=== PATIENT | female | born 1985 | race Caucasian/White ===

== ENCOUNTER 2018-12-22 22:23 | Inpatient (IN) | payer MEDICAID, OTHER ==
[2018-12-22 23:35] LABS: Amphetamine Screen,Urine Not Detected (NotDetected); Barbiturate Screen,Urine Not Detected (NotDetected); Benzodiazepines Screen,Urine Detected (NotDetected); Cocaine Screen,Urine Not Detected (NotDetected); Methadone Screen, Urine Not Detected (NotDetected); Opiate Screen,Urine Not Detected (NotDetected); Oxycodone Screen, Urine Detected (NotDetected); Phencyclidine Screen,Urine Not Detected (NotDetected); Tricyclic Antidepressant,Urine Detected (NotDetected); Urn Cannabinoid Scrn Detected (NotDetected)
--- NOTE | 2018-12-22 23:41 | ED ---
General Adult HPI - General Source: patient, police, RN notes reviewed, old records reviewed Mode of arrival: ambulatory Limitations: no limitations <Russell Cardoso - Last Filed: 12/22/18 23:39> <Gael Freeman - Last Filed: 12/23/18 12:08> - General Chief complaint: Psychiatric Symptoms Stated complaint: Suicidal Time Seen by Provider: 12/22/18 22:39 - History of Present Illness Initial comments: 36-year-old female presents with alcohol intoxication and suicidal ideation. She has been sober for approximately one year. She admits to drinking alcohol this evening. She has made suicidal comments and has made some superficial cuts to her wrist. She denies any other ingestion. She has had previous psychiatric history including depression and admission to psychiatric facilities with suicide thoughts. No other physical complaints. (Russell Cardoso) - Related Data Home Medications Medication Instructions Recorded Confirmed Diazepam [Valium] 5 mg PO Q8H PRN 12/22/18 12/22/18 Mirtazapine [Remeron] 30 mg PO HS 12/22/18 12/22/18 Pregabalin [Lyrica] 150 mg PO BID 12/22/18 12/22/18 Allergies Allergy/AdvReac Type Severity Reaction Status Date / Time No Known Allergies Allergy Verified 12/22/18 23:30 Review of Systems ROS Other: All systems not noted in ROS Statement are negative. <Russell Cardoso - Last Filed: 12/22/18 23:39> ROS Other: All systems not noted in ROS Statement are negative. <Gael Freeman - Last Filed: 12/23/18 12:08> ROS Statement: Those systems with pertinent positive or pertinent negative responses have been documented in the HPI. Past Medical History Past Medical History: No Reported History Additional Past Medical History / Comment(s): depression History of Any Multi-Drug Resistant Organisms: None Reported Additional Past Surgical History / Comment(s): chronic knee pain Past Psychological History: Anxiety, Depression Smoking Status: Current every day smoker Past Alcohol Use History: Occasional Past Drug Use History: Marijuana <Russell Cardoso - Last Filed: 12/22/18 23:39> General Exam Limitations: no limitations General appearance: alert, in no apparent distress, appears intoxicated Head exam: Present: atraumatic, normocephalic Eye exam: Present: normal appearance, PERRL ENT exam: Present: normal exam Neck exam: Present: normal inspection. Absent: tenderness, meningismus Respiratory exam: Present: normal lung sounds bilaterally. Absent: respiratory distress, wheezes Cardiovascular Exam: Present: regular rate, normal rhythm GI/Abdominal exam: Present: soft. Absent: distended, tenderness, guarding Neurological exam: Present: alert, oriented X3, CN II-XII intact. Absent: motor sensory deficit Psychiatric exam: Present: depressed, suicidal ideation Skin exam: Present: warm, dry, abrasion (Superficial abrasion left wrist, no repairable laceration.) <Russell Cardoso - Last Filed: 12/22/18 23:39> Course <Russell Cardoso - Last Filed: 12/22/18 23:39> Vital Signs 12/22/18 12/23/18 22:28 08:14 Temperature 97.5 F L 98 F Pulse Rate 81 85 Respiratory 16 16 Rate Blood Pressure 111/84 105/69 O2 Sat by Pulse 97 97 Oximetry - Reevaluation(s) Reevaluation #1: 12/22/18 0100 Patient's care is signed out at shift change to Dr. De Jesus awaiting sobriety and EPS evaluation. (Russell Cardoso) Medical Decision Making - Lab Data Result diagrams: 12/23/18 09:28 12/23/18 09:28 <Gael Freeman - Last Filed: 12/23/18 12:08> - Medical Decision Making I went in and interviewed the patient at 8:15 and then filled out a clinical certification for the patient to be admitted. (Gael Freeman) - Lab Data Lab Results 12/22/18 12/23/18 12/23/18 Range/Units 23:10 00:01 09:07 WBC (3.8-10.6) k/uL RBC (3.80-5.40) m/uL Hgb (11.4-16.0) gm/dL Hct (34.0-46.0) % MCV (80.0-100.0) fL MCH (25.0-35.0) pg MCHC (31.0-37.0) g/dL RDW (11.5-15.5) % Plt Count (150-450) k/uL Neutrophils % % Lymphocytes % % Monocytes % % Eosinophils % % Basophils % % Neutrophils # (1.3-7.7) k/uL Lymphocytes # (1.0-4.8) k/uL Monocytes # (0-1.0) k/uL Eosinophils # (0-0.7) k/uL Basophils # (0-0.2) k/uL Sodium (137-145) mmol/L Potassium (3.5-5.1) mmol/L Chloride (98-107) mmol/L Carbon Dioxide (22-30) mmol/L Anion Gap mmol/L BUN (7-17) mg/dL Creatinine (0.52-1.04) mg/dL Est GFR (CKD-EPI)AfAm (>60 ml/min/1.73 sqM) Est GFR (CKD-EPI)NonAf (>60 ml/min/1.73 sqM) Glucose (74-99) mg/dL Calcium (8.4-10.2) mg/dL Total Bilirubin (0.2-1.3) mg/dL AST (14-36) U/L ALT (9-52) U/L Alkaline Phosphatase (38-126) U/L Total Protein (6.3-8.2) g/dL Albumin (3.5-5.0) g/dL Urine Color Light Yellow Urine Appearance Cloudy H (Clear) Urine pH 6.0 (5.0-8.0) Ur Specific [place] 1.008 (1.001-1.035) Urine Protein Negative (Negative) Urine Glucose (UA) Negative (Negative) Urine Ketones Negative (Negative) Urine Blood Negative (Negative) Urine Nitrite Negative (Negative) Urine Bilirubin Negative (Negative) Urine Urobilinogen <2.0 (<2.0) mg/dL Ur Leukocyte Esterase Negative (Negative) Urine RBC 5 (0-5) /hpf Urine WBC 2 (0-5) /hpf Ur Squamous Epith Cells 8 H (0-4) /hpf Amorphous Sediment Occasional H (None) /hpf Urine Bacteria Rare H (None) /hpf Urine Mucus Occasional H (None) /hpf Urine HCG, Qual Not Detected (Not Detectd) Urine Opiates Screen Not Detected (NotDetected) Ur Oxycodone Screen Detected H (NotDetected) Urine Methadone Screen Not Detected (NotDetected) Ur Propoxyphene Screen Not Detected (NotDetected) Ur Barbiturates Screen Not Detected (NotDetected) U Tricyclic Antidepress Detected H (NotDetected) Ur Phencyclidine Scrn Not Detected (NotDetected) Ur Amphetamines Screen Not Detected (NotDetected) U Methamphetamines Scrn Not Detected (NotDetected) U Benzodiazepines Scrn Detected H (NotDetected) Urine Cocaine Screen Not Detected (NotDetected) U Marijuana (THC) Screen Detected H (NotDetected) 12/23/18 12/23/18 Range/Units 09:28 09:28 WBC 5.9 (3.8-10.6) k/uL RBC 4.52 (3.80-5.40) m/uL Hgb 13.8 (11.4-16.0) gm/dL Hct 40.7 (34.0-46.0) % MCV 90.1 (80.0-100.0) fL MCH 30.5 (25.0-35.0) pg MCHC 33.9 (31.0-37.0) g/dL RDW 13.5 (11.5-15.5) % Plt Count 288 (150-450) k/uL Neutrophils % 56 % Lymphocytes % 33 % Monocytes % 7 % Eosinophils % 2 % Basophils % 1 % Neutrophils # 3.3 (1.3-7.7) k/uL Lymphocytes # 2.0 (1.0-4.8) k/uL Monocytes # 0.4 (0-1.0) k/uL Eosinophils # 0.1 (0-0.7) k/uL Basophils # 0.0 (0-0.2) k/uL Sodium 144 (137-145) mmol/L Potassium 3.8 (3.5-5.1) mmol/L Chloride 111 H (98-107) mmol/L Carbon Dioxide 21 L (22-30) mmol/L Anion Gap 12 mmol/L BUN 13 (7-17) mg/dL Creatinine 0.56 (0.52-1.04) mg/dL Est GFR (CKD-EPI)AfAm >90 (>60 ml/min/1.73 sqM) Est GFR (CKD-EPI)NonAf >90 (>60 ml/min/1.73 sqM) Glucose 106 H (74-99) mg/dL Calcium 8.5 (8.4-10.2) mg/dL Total Bilirubin 0.3 (0.2-1.3) mg/dL AST 15 (14-36) U/L ALT 12 (9-52) U/L Alkaline Phosphatase 61 (38-126) U/L Total Protein 6.8 (6.3-8.2) g/dL Albumin 4.0 (3.5-5.0) g/dL Urine Color Urine Appearance (Clear) Urine pH (5.0-8.0) Ur Specific [place] (1.001-1.035) Urine Protein (Negative) Urine Glucose (UA) (Negative) Urine Ketones (Negative) Urine Blood (Negative) Urine Nitrite (Negative) Urine Bilirubin (Negative) Urine Urobilinogen (<2.0) mg/dL Ur Leukocyte Esterase (Negative) Urine RBC (0-5) /hpf Urine WBC (0-5) /hpf Ur Squamous Epith Cells (0-4) /hpf Amorphous Sediment (None) /hpf Urine Bacteria (None) /hpf Urine Mucus (None) /hpf Urine HCG, Qual (Not Detectd) Urine Opiates Screen (NotDetected) Ur Oxycodone Screen (NotDetected) Urine Methadone Screen (NotDetected) Ur Propoxyphene Screen (NotDetected) Ur Barbiturates Screen (NotDetected) U Tricyclic Antidepress (NotDetected) Ur Phencyclidine Scrn (NotDetected) Ur Amphetamines Screen (NotDetected) U Methamphetamines Scrn (NotDetected) U Benzodiazepines Scrn (NotDetected) Urine Cocaine Screen (NotDetected) U Marijuana (THC) Screen (NotDetected) Disposition <Russell Cardoso - Last Filed: 12/22/18 23:39> Time of Disposition: 08:32 <Gael Freeman - Last Filed: 12/23/18 12:08> Clinical Impression: Depression, Suicidal ideation, Alcohol abuse Disposition: ADMITTED IP TO THIS HOSP
[2018-12-23] MEDS ORDERED: ONDANSETRON ODT 4 MG TAB PO STA (01:41)
[2018-12-23] MEDS ORDERED: LORazepam 1 MG TAB PO STA (02:21)
[2018-12-23 09:30] LABS: Amorphous Sediment,Urine Occasional /hpf; Appearance,Urine Cloudy (Clear); Bacteria,Urine Rare /hpf; Bilirubin,Urine Negative (Negative); Blood,Urine Negative (Negative); Color,Urine Light Yellow; Glucose,Urine (UA) Negative (Negative); Ketones,Urine Negative (Negative); Leukocyte Esterase,Urine Negative (Negative); Mucus,Urine Occasional /hpf; Nitrite,Urine Negative (Negative); Protein,Urine Negative (Negative); RBC,Urine 5 /hpf (0-5); Specific Gravity,Urine 1.008 (1.001-1.035); Squamous Epithelial Cell,Urine 8 /hpf (0-4); Urobilinogen,Urine <2.0 mg/dL (<2.0); WBC,Urine 2 /hpf (0-5)
[2018-12-23 09:47] LABS: ALT 12 U/L (9-52); AST 15 U/L (14-36); African American GFR (CKD) >90 (>60 ml/min/1.73 sqM); Alkaline Phosphatase 61 U/L (38-126); Anion Gap 12 mmol/L; Blood Urea Nitrogen 13 mg/dL (7-17); Calcium 8.5 mg/dL (8.4-10.2); Carbon Dioxide 21 mmol/L (22-30); Chloride 111 mmol/L (98-107); Glucose 106 mg/dL (74-99); Potassium 3.8 mmol/L (3.5-5.1); Sodium 144 mmol/L (137-145); Total Bilirubin 0.3 mg/dL (0.2-1.3); Total Protein 6.8 g/dL (6.3-8.2)
[2018-12-23 09:59] LABS: Basophils % (A) 1 %; Eosinophils # (A) 0.1 k/uL (0-0.7); Eosinophils % (A) 2 %; HCT 40.7 % (34.0-46.0); HGB 13.8 gm/dL (11.4-16.0); Lymphocytes % (A) 33 %; MCH 30.5 pg (25.0-35.0); MCHC 33.9 g/dL (31.0-37.0); MCV 90.1 fL (80.0-100.0); Mean Platelet Volume 7.4; Monocytes # (A) 0.4 k/uL (0-1.0); Monocytes % (A) 7 %; Neutrophils # (A) 3.3 k/uL (1.3-7.7); Neutrophils % (A) 56 %; Platelet Count 288 k/uL (150-450); RBC 4.52 m/uL (3.80-5.40); RDW 13.5 % (11.5-15.5); WBC 5.9 k/uL (3.8-10.6)
[2018-12-23] MEDS ORDERED: MAG HYDROX/AL HYDROX/SIMETH 30 ML CUP PO PRN (12:10)
[2018-12-23] MEDS ORDERED: ZIPRASIDONE 20 MG VIAL IM PRN (12:10)
[2018-12-23] MEDS ORDERED: MAGNESIUM HYDROXIDE 2,400 MG/10 ML CUP PO PRN (12:10)
[2018-12-23] MEDS ORDERED: ACETAMINOPHEN TAB 325 MG TAB PO PRN (12:10)
[2018-12-23 14:23] VITALS: BMI 31.4
[2018-12-23] MEDS ORDERED: NICOTINE 21MG/24HR PATCH TRANSDERM STA (15:17)
[2018-12-23] MEDS: hydrOXYzine PAMOATE 25 MG CAP PO PRN (15:20)
[2018-12-23] MEDS: OLANZapine 5 MG TAB PO SCH ×2 (15:20→20:32)
--- NOTE | 2018-12-23 15:53 | HP ---
HISTORY AND PHYSICAL IDENTIFYING DATA: The patient is a 33-year-old female. She lives in her own home with her son with whom she has partial custody. She was admitted on petition for involuntary hospitalization. CHIEF COMPLAINT: The patient was depressed. She made suicide statements. She was intoxicated. HISTORY OF PRESENTING ILLNESS: The patient has had long-term problems with depression. She had 1 prior psychiatric hospitalization about one year ago in [place]. She was there for a week. She was discharged on medications. She does not recall what medicines she was on at that time. At that time, the patient indicated that she had swallowed a "bunch of pills" and then became distressed over the event and told her father she had just overdosed. He ended up getting her to the hospital. Currently, she is taking Remeron 30 mg a day, Valium 5 mg 3 times a day and Lyrica 150 mg twice a day. She came to the emergency room after having drank about a pint of alcohol yesterday. She said she was quite intoxicated as part of what got her to be suicidal. She apparently had locked herself in the bathroom and was contemplating cutting her wrists with a razor blade. Her mother and sister forced the door open, called police and she was brought to the ED. It is noted that the patient said she had not been drinking alcohol for the last 9 months. She had been drinking on a daily basis, 1-2 pints a day prior to that. She said that she just got to a point where she would vomit when she drank, so she just stopped on her own. She notes that some years ago she was in treatment facilities including 1 stay for 30 days and another stay for 45 days. According to family with whom I talked, she did quite a bit better overall in her life after she left those facilities. I talked to mother and sister. They indicated that for quite some time, the patient has been gradually declining in her overall function. She lives in a home that her father owns though he does not live there. She has been barely taking care of the home and it is in quite a disheveled state. According to the family, she will not wash clothes. She does not take care of refuge. She has very poor motivation in all areas of her life. The patient notes that she has an 8-year-old son who lives half time between her and the son's father. She said when the son is at father's house, she essentially withdraws. She barely can do anything. She stays in her house. She notes that her only activity outside of her house is when she has her son and needing to attend to his needs. She reports no problems with hallucinations or delusions. She does not identify any clear trauma issues or any posttraumatic symptoms. She has significant anxiety and frequently gets panic attacks for no reason. She has loss of energy, motivation and interest. She has hopeless and helpless feelings. She has poor sleep and poor appetite. It is noted that the house that the patient is living in may soon be up for sale. Patient has no idea what she will do when her father sells the house. Family notes that the patient frequently comes from her home in [place] up to grandmother's house in [place] essentially as a refuge. The patient's mother lives with grandmother. She in fact was at the grandmother's house when the events happened yesterday. The patient had been in partial hospitalization through [place] at a facility nearby her home. She was vague about particulars on that, though says that she did feel it helped to some extent. It is noteworthy that currently she acknowledges very severe incapacitating depression. She is admitted for further evaluation. SUBSTANCE USE HISTORY: Patient smokes marijuana regularly. She suggests that she may smoke marijuana 2-4 times a week. She has a past history of alcohol dependence. She did relapse yesterday. She says that otherwise she has not had not drank in 9 months. She denies any significant problems with other abusive substances. PAST MEDICAL HISTORY: The patient reports no significant or chronic general health complaints. She has had one . She reports normal periods without any difficulties. 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 She graduated from high school. She grew up with both parents in the home. When she was in her 20s, her parents . She has a brother 7 years older who she has little or no contact with. She has had a sister 7 years younger who she does have regular contact with. She says that the sister does not really understand some of the struggles she has had. MENTAL STATUS EXAM: Patient was quite restless. She gave poor eye contact. She tended to fidget quite a bit as well as moving her chair. She answered questions with direct responses. Her thoughts were clear, coherent, and goal directed. Her affect was anxious and intense. Her mood depressed. She was significantly distressed. There was no indication of thought disorder. Cognition was clear. She was oriented and alert. Recent and remote memory were intact. She did make an effort to answer formal cognitive questions, but gave an accurate history based on records. Insight was fair. Judgment fair. Fund of knowledge average. ASSESSMENT: This 33-year-old female is diagnosed with major depression and marijuana dependence. She has a history of alcohol dependence. She has chronic depression that has been quite severe and apparently advancing. Precipitating factors to her current situation are not clear. It is noteworthy that when I talked to the patient in the ED initially, she was very fixed on the idea of being discharged to outpatient followup. [facility] had offered [facility]. She became very distressed in the ED when the possibility was presented to her that she may need to be hospitalized. She was very adamant about the idea that she needed to be discharged. When that was presented to her after I talked with the family that she would be hospitalized, she seemed to be somewhat accepting of the idea. Just a few hours later when I talked to her on the psychiatric unit, it is noteworthy that she was quite open in acknowledging the amount of depression, distress and poor function that she has. She seemed to show some fairly reasonable insight about her situation and need to get some help for herself. She acknowledged the struggles she has with poor self-esteem. Strengths include the patient's [place] intelligence and ability to gain some insight about her situation. Weaknesses includes chronic and persistent depression. At this point, I will continue the patient on Remeron 30 mg at bedtime. I will reduce Valium to 5 mg at bedtime for 3 days and then discontinue Valium altogether. I anticipate she will have some fairly significant withdrawal issues from the Valium. We will need to have at least a minimum taper to reduce risk for seizure. I will reduce her Lyrica down to 150 mg a day. I will start the patient on Zyprexa 5 mg 3 times a day. The aim of Zyprexa is to help augment her antidepressant. In addition, I would look for Zyprexa to help reduce physiologic stress response relating to early acute withdrawal as well as some of her anxiety and panic issues. I will need to set up a family meeting as a priority. The patient believes that her mother, sister, and father all could come in for a family meeting, which would be a critical issue in helping to further evaluate her situation and determining a good followup plan. It is noted that both mother and sister indicated on the telephone conversation I had with them that the patient has a very high likelihood of regressing when she is out of a structured environment and that it will be critical to set up some kind of a plan to look at support services for the patient. FELAL / IJN: [id number] /
[2018-12-23] MEDS: MIRTAZAPINE 15 MG TAB PO SCH (20:33)
[2018-12-23] MEDS ORDERED: PREGABALIN 75 MG CAP PO SCH (21:00)
[2018-12-23] MEDS ORDERED: DIAZEPAM 5 MG TAB PO SCH (21:00)
[2018-12-24 07:04] VITALS: RESP 16
[2018-12-24] MEDS: NICOTINE 21MG/24HR PATCH TRANSDERM SCH (08:41)
[2018-12-24] MEDS: OLANZapine 5 MG TAB PO SCH (08:42)
[2018-12-24] MEDS: PREGABALIN 75 MG CAP PO SCH (08:42)
[2018-12-24] MEDS: DIAZEPAM 5 MG TAB PO SCH ×2 (11:08→20:41)
--- NOTE | 2018-12-24 11:25 | P.PN ---
Progress Note - Text Progress Note Date: 12/24/18 Interval History: Patient is a 33-year-old female who is being seen in coverage, she was admitted for suicidal thoughts and had been using her mother's Percocet. Patient states that she thought of taking an overdose when she was visiting her grandmother because she needed help. Patient has been receiving her psychiatric medications from her primary care physician and has been taking Valium 5 mg 3 times a day consistently for a number of months as well as Lyrica 150 mg twice a day she states being given to her for anxiety and Remeron 30 mg a day at bedtime. Patient states that she is not been in treatment or seen a therapist for some time. She states that she stole Percocet from her mother. She also uses marijuana. Patient states that she hasn't seen a psychiatrist for one year and states that she is currently not feeling suicidal. Patient reported that she was feeling quite anxious this morning and jittery. Mental Status: Appearance/Attitude: Patient is appropriately dressed, makes eye contact and was cooperative Behavior: Patient does not display any psychomotor agitation or retardation Speech/Language: Patient's speech is spontaneous and normal volume and rhythm and she is coherent Thought Process: Patient is goal-directed there is no evidence of loose association or flight of ideas Thought Content: Patient denies any auditory or visual hallucinations and no delusions or paranoid ideation were elicited. Patient reports that she was visiting her grandmother and thought of taking an overdose because she needed help. Patient has been stealing Percocet from her mother, has been on Valium and Lyrica prescribed by primary care physician for anxiety. Patient is also been on Remeron for symptoms of depression. Patient states that she is also been using marijuana. Suicidal/Homicidal Ideation: Patient denies any current suicidal or homicidal ideation Sensorium/Cognition: Patient is alert and oriented to person, place, and time and her recent and remote memory are grossly intact. Mood/Affect: Patient's mood is pleasant, she is slightly anxious and her affect is appropriate Insight/Judgment: Patient's insight and judgment are fair Assessment: Patient appears to be anxious and shaky this morning, her Lyrica dose was decreased as well as her Valium dose. Patient was also placed on Zyprexa. Patient has been stealing Percocet from her mother and has been receiving her Lyrica and Valium from a primary care physician and has been filling Valium prescriptions on a monthly basis for some time. Patient has not been seen for any therapy or outpatient psychiatric care for the last year. Plan: We will discontinue the patient's Zyprexa and continue her on Remeron 30 mg at bedtime, continue with the decreased dose of Lyrica to 150 mg a day and consider discontinuing it as well. We'll increase the patient's Valium to 5 mg twice a day to continue the taper, as patient was having some withdrawal symptoms and feel that she's been on this medication for quite some time the taper needs to go slower. Patient will continue in the hospital to further sta bilize her mood.
--- NOTE | 2018-12-24 14:29 | P.HPMEDMHU ---
History of Present Illness H&P Date: 12/24/18 Chief Complaint: depression, suicide attempt Patient is a 33-year-old female with a past medical history of chronic knee pain, left knee depression, and anxiety who was brought in by petitioned for suicidal ideation and attempt. She was subsequently admitted to the mental health unit. Patient seen and examined. She reports significant depression with attempt at suicide. She denies any recent cough, cold, fever, flu, nausea, vomiting, or shortness of breath. Her appetite has been intact. She does report some insomnia. Review of Systems Pertinent positives and negatives as discussed in HPI, a complete review of systems was performed and all other systems are negative. Past Medical History Additional Past Medical History / Comment(s): depression, chronic knee pain History of Any Multi-Drug Resistant Organisms: None Reported Past Surgical History: No Surgical Hx Reported Additional Past Anesthesia/Blood Transfusion Reaction / Comment(s): no anesthesia history Smoking Status: Current every day smoker Past Alcohol Use History: Rare Past Drug Use History: Marijuana Additional History: Had been sober for 9 months until Monday when she started drinking again. - Past Family History Mother Family Medical History: No Reported History Father Family Medical History: No Reported History Medications and Allergies Home Medications Medication Instructions Recorded Confirmed Type Diazepam [Valium] 5 mg PO Q8H PRN 12/22/18 12/22/18 History Mirtazapine [Remeron] 30 mg PO HS 12/22/18 12/22/18 History Pregabalin [Lyrica] 150 mg PO BID 12/22/18 12/22/18 History Allergies Allergy/AdvReac Type Severity Reaction Status Date / Time No Known Allergies Allergy Verified 12/22/18 23:30 Physical Exam Osteopathic Statement: *. No significant issues noted on an osteopathic stru ctural exam other than those noted in the History and Physical/Consult. Vitals: Vital Signs Temp Pulse Resp BP 12/24/18 06:11 98.3 F 76 16 119/71 12/23/18 14:44 97.6 F 88 18 113/68 General: non toxic, no distress, appears at stated age, normal weight, disheveled Derm: no unusual rashes/lesions no unusual ecchymoses, warm, dry Head: atraumatic, normocephalic, symmetric Eyes: EOMI, no lid lag, anicteric sclera, pupils equal round reactive to light ENT: Nose and ears atraumatic, no thrush, no pharyngeal erythema Neck: No thyromegaly, no cervical lymphadenopathy, trachea midline, supple Mouth: no lip lesion, mucus membranes moist Cardiovascular: S1S2 reg, no murmur, positive posterior tibial pulse bilateral, no edema, capillary refill less than 2 seconds Lungs: CTA bilateral, no rhonchi, no rales , no accessory muscle use Abdominal: soft, nontender to palpation, no guarding, no appreciable organomegaly, normal bowel sounds Ext: no gross muscle atrophy, muscle strength 5 out of 5 in all 4 extremities grossly, no contractures, Neuro: CN II-XI grossly intact, light touch intact all 4 extremities, finger to nose within normal limits, Psych: Alert, oriented, appropriate affect Cranial Nerve Examination - Cranial Nerves Cranial Nerve II- Optic: Intact Cranial Nerve III- Oculomotor: Intact Cranial Nerve IV- Trochlear: Intact Cranial Nerve V- Trigeminal: Intact Cranial Nerve - Abducens: Intact Cranial Nerve VII- Facial: Intact Cranial Nerve VIII- Auditory: Intact Cranial Nerve IX- Glossopharyngeal: Intact Cranial Nerve X- Vagus: Intact Cranial Nerve XI- Accessory: Intact Cranial Nerve XII- Hypoglossal: Intact Results CBC & Chem 7: 12/23/18 09:28 12/23/18 09:28 Thrombosis Risk Factor Assmnt - DVT/VTE Prophylaxis DVT/VTE Prophylaxis: Low risk, early ambulation encouraged - Choose All That Apply Any of the Below Risk Factors Present?: Yes Each Factor Represents 1 point: Obesity (BMI >25) Other Risk Factors: No Other congenital or acquired thrombophilia - If yes, enter type in comment: No Thrombosis Risk Factor Assessment Total Risk Factor Score: 1 Thrombosis Risk Factor Assessment Level: Low Risk Assessment and Plan Assessment: Mental health history and physical Tobacco abuse -Cessation -Nicotine replacement Anxiety and depression with suicide attempt -Your psych management Thank you for allowing us to participate in the care of this patient. We will follow peripherally. Do not hesitate to contact us with questions. Someone can be reached from the [facility] hospitalist group at all hours of the day at [phone].
[2018-12-24] MEDS: hydrOXYzine PAMOATE 25 MG CAP PO PRN (15:25)
[2018-12-24 17:18] LABS: Hemoglobin A1C 5.8 % (4.0-6.0)
[2018-12-24] MEDS: MIRTAZAPINE 15 MG TAB PO SCH (20:41)
[2018-12-25 07:01] VITALS: BP 105/60; PULSE 71; TEMP 97.9
[2018-12-25] MEDS: NICOTINE 21MG/24HR PATCH TRANSDERM SCH (08:02)
[2018-12-25] MEDS: DIAZEPAM 5 MG TAB PO SCH (08:03)
[2018-12-25] MEDS: PREGABALIN 75 MG CAP PO SCH (08:03)
--- NOTE | 2018-12-25 09:58 | P.DS ---
Providers Date of admission: 12/23/18 12:02 Expected date of discharge: 12/25/18 Attending physician: Yassine Noonan Consults: 12/23/18 12:10 Consult Physician Routine Consulting Provider: Luis Domínguez Consult Reason/Comments: history and physical Do you want consulting provider notified?: Yes Primary care physician: Stated None - Discharge Diagnosis(es) (1) Major depressive disorder, recurrent severe without psychotic features Current Visit: Yes Status: Acute Priority: High (2) Opioid use disorder Current Visit: Yes Status: Acute Priority: High (3) Alcohol use disorder Current Visit: Yes Status: Acute Priority: High (4) Cannabis use disorder, mild, abuse Current Visit: Yes Status: Acute Priority: Medium Hospital Course: Brief summary of admission note: This patient is a 33-year-old female who was admitted to the mental health unit with suicidal ideation while she was intoxicated with alcohol. She had reported thoughts of cutting herself on her w rists with a razor blade. Her mother and sister forced the door open of the bathroom and the patient was brought in by police. She indicated she was sober from alcohol for 9 months and had recently relapsed and drank 1.5 pints of alcohol that day. For full details please refer to the psychiatric evaluation by Dr. Lester on 12/23/2018. Summary of hospital course: The patient was admitted to the mental health unit voluntarily. She was initially evaluated by Dr. Lester and later seen by Dr. Tilley. I have assumed care of the patient starting today. I was informed that the patient has inpatient chemical dependency treatment arranged which will start today at [facility]. I have met with the patient I reviewed the psychiatric evaluation and subsequent progress note. She indicates that she is having no suicidal ideation intent or plan. He feels that she had those thoughts because she was intoxicated and was disappointed with herself as she had relapsed after 9 months of sobriety from alcohol. She indicates that she's been using Percocet on a daily basis and she's been taking those from her mother. She is motivated to go to inpatient chemical dependency treatment. She states that she is going on her own accord but is also being influenced by her child's father and her mother. Staff report that she's been cooperative on the mental health unit she's been attending groups she's demonstrated no agitated behavior. The Valium has been reduced. She's been taking that for several years prescribed by primary care physician. She did participate in a support meeting. Mental status exam: The patient is alert she is dressed in her own clothing hygiene grooming adequate. Speech is fluent and spontaneous nonpressured. She demonstrates no tangential thinking loose associations or flight of ideas. She does not appear hypomanic or manic. She reports no suicidal ideation intent or plan. She reports no homicidal ideation intent or plan. She is reporting no auditory or visual hallucinations or any specific delusions and there is no observed evidence of psychosis. Affect is euthymic and congruent to reported mood. She describes her mood as being good. She demonstrates no verbal or physical aggressiveness she demonstrates no involuntary repetitive movements. She is oriented to person place and date. Spontaneously she describes future oriented thinking area Impressions 1. Major depressive disorder recurrent severe without psychosis, alcohol use disorder, opioid use disorder, cannabis use disorder. Plan: The patient will be discharged mental health unit today. She will be starting inpatient chemical dependency treatment at [facility] starting at 2 PM. She indicates that her mother will be transporting her there from the mental health unit. She will continue on Remeron 30 mg at bedtime. We discussed the importance of abstaining from any benzodiazepines as well as alcohol marijuana or illicit drugs. We discussed that those substances will precipitate mood symptoms an elevator safety risk. At this time there is no imminent safety risk she is appropriate for transition inpatient chemical dependency treatment. She is instructed to return to the hospital any acute safety concerns. Patient Condition at Discharge: Stable Plan - Discharge Summary Discharge Rx Participant: No New Discharge Prescriptions: New Nicotine 21Mg/24Hr Patch [Habitrol] 1 patch TRANSDERM DAILY #14 patch Pregabalin [Lyrica] 150 mg PO DAILY cap Continue Mirtazapine [Remeron] 30 mg PO HS #30 tablet Discontinued Pregabalin [Lyrica] 150 mg PO BID Diazepam [Valium] 5 mg PO Q8H PRN PRN Reason: Anxiety Discharge Medication List Mirtazapine [Remeron] 30 mg PO HS #30 tablet 12/25/18 [Rx] Nicotine 21Mg/24Hr Patch [Habitrol] 1 patch TRANSDERM DAILY #14 patch 12/25/18 [Rx] Pregabalin [Lyrica] 150 mg PO DAILY cap 12/25/18 [Rx] Follow up Appointment(s)/Referral(s): intake,intake [Other] - 12/25/18 2:00 pm Nonstaff,Physician [REFERRING] - 1-2 days
== END 2018-12-25 11:44 | DRG 885 ==
LOC: EC 22:23 → 3MHU 12-23 12:02
PROVIDERS: ADMIT Psychiatry & Neurology Psychiatry; ATTEND Psychiatry & Neurology Psychiatry
DX: F33.2 Major depressive disorder, recurrent severe without psychotic features (principal); F17.200 Nicotine dependence, unspecified, uncomplicated; F12.10 Cannabis abuse, uncomplicated; Z79.899 Other long term (current) drug therapy
CPT/HCPCS: 36415; 80053; 80306; 81001; 81025; 82075; 83036; 84443; 85025; 99285

== ENCOUNTER 2021-08-15 15:20 | Emergency (ER) | payer OTHER ==
[2021-08-15 15:35] VITALS: BP 117/82; PULSE 82; RESP 16; TEMP 97.5
[2021-08-15] MEDS ORDERED: KETOROLAC 15 MG/ML 1 ML VIAL IM STA (15:48)
[2021-08-15] MEDS ORDERED: CYCLOBENZAPRINE 10 MG TAB PO STA (15:49)
[2021-08-15] MEDS ORDERED: LORazepam 1 MG TAB PO STA (16:36)
--- NOTE | 2021-08-15 17:05 | XR ---
EXAMINATION TYPE: XR humerus LT DATE OF EXAM: 08/15/2021 COMPARISON: NONE HISTORY: Shoulder pain TECHNIQUE: 2 views FINDINGS: There is no fracture nor dislocation. Glenohumeral joint is intact. There are no pathologic calcifications. IMPRESSION: Negative left humerus exam. No fracture.
--- NOTE | 2021-08-15 17:06 | XR ---
EXAMINATION TYPE: XR shoulder complete LT DATE OF EXAM: 08/15/2021 COMPARISON: NONE HISTORY: Ulnar pain TECHNIQUE: 3 views FINDINGS: There is no evidence of fracture nor dislocation. Glenohumeral joint is anatomic. There are no pathologic calcifications. IMPRESSION: Negative left shoulder exam.
[2021-08-15] MEDS ORDERED: CYCLOBENZAPRINE 10MG STARTER 3 TAB BTL PO STA (17:34)
--- NOTE | 2021-08-15 17:34 | ED ---
Upper Extremity HPI - General Chief Complaint: Extremity Injury, Upper Stated Complaint: Left Shoulder Injury Time Seen by Provider: 08/15/21 15:39 Source: patient Mode of arrival: ambulatory Limitations: no limitations - History of Present Illness Initial Comments: She is a 36-year-old female presenting to the for evaluation of L shoulder pain. While walking her dog her shoulder was jerked forward and backwards, immediately following she began experiencing muscle spasm-like pain. Pain is localized to the L shoulder and mid arm. She has not tried supportive care at home. Range of motion is limited due to pain and discomfort. She states she has full sensation and has full range of motion of fingers, wrist, and elbow. - Related Data Previous Rx's Medication Instructions Recorded Mirtazapine [Remeron] 30 mg PO HS #30 tablet 12/25/18 Nicotine 21Mg/24Hr Patch [Habitrol] 1 patch TRANSDERM DAILY #14 patch 12/25/18 Pregabalin [Lyrica] 150 mg PO DAILY cap 12/25/18 Cyclobenzaprine HCl 10 mg PO TID PRN #20 tab 08/15/21 Allergies Allergy/AdvReac Type Severity Reaction Status Date / Time No Known Allergies Allergy Verified 08/15/21 15:34 Review of Systems ROS Statement: Those systems with pertinent positive or pertinent negative responses have been documented in the HPI. ROS Other: All systems not noted in ROS Statement are negative. Past Medical History Past Medical History: No Reported History Additional Past Medical History / Comment(s): depression, chronic knee pain History of Any Multi-Drug Resistant Organisms: None Reported Past Surgical History: No Surgical Hx Reported Additional Past Surgical History / Comment(s): chronic knee pain Additional Past Anesthesia/Blood Transfusion Reaction / Comment(s): no anesthesia history Past Psychological History: Anxiety, Depression Smoking Status: Current every day smoker Past Alcohol Use History: Rare Past Drug Use History: Marijuana - Past Family History Mother Family Medical History: No Reported History Father Family Medical History: No Reported History General Exam Limitations: no limitations General appearance: alert, anxious Head exam: Present: atraumatic, normocephalic, normal inspection Eye exam: Present: normal appearance, PERRL, EOMI. Absent: scleral icterus, conjunctival injection, periorbital swelling Neck exam: Present: normal inspection Left Shoulder Exam: Present: normal inspection, tenderness. Absent: full ROM, swelling, ecchymosis, erythema Upper Arm exam: Present: normal inspection, tenderness. Absent: full ROM, swelling, abrasion, ecchymosis Elbow exam: Present: normal inspection, full ROM. Absent: tenderness, swelling, abrasion, ecchymosis Neurosensory exam: Present: other (Neurovascularly intact) Neurological exam: Present: alert, oriented X3, CN II-XII intact Psychiatric exam: Present: anxious Skin exam: Present: warm, dry, intact, normal color. Absent: rash Course Vital Signs 08/15/21 15:31 Temperature 97.5 F L Pulse Rate 82 Respiratory 16 Rate Blood Pressure 117/82 O2 Sat by Pulse 97 Oximetry Medical Decision Making - Medical Decision Making Patient is a 36-year-old female presenting for evaluation of L shoulder and arm pain. Occurred this morning while walking her dog, her arm was jerked forward and then backwards rapidly. She describes the pain as muscle spasm-like. Arm pain is located in the center of the upper arm. On exam range of motion is limited due to pain, neurovascularly intact. X-ray revealed no fracture or dislocation. Advised supportive treatment with heat, ice, rest, elevation. Provided patient with arm sling, prescription for cyclobenzaprine 10 mg up to 3 times a day as needed for muscle spasms (do not take before driving or operating heavy machinery as it can increase drowsiness), and starter pack cyclobenzaprine. Alternate Motrin and Tylenol as needed, do not exceed more than 3500 mg of acetaminophen are 3200 mg of ibuprofen in 24 hours. Follow-up with orthopedics if symptoms do not resolve. Follow up with PCP within the week. Answered all questions. Patient conveyed verbal understanding and agreed to the plan. Dr. Hurtado is the attending. Disposition Clinical Impression: Strain of shoulder, Muscle spasm Disposition: HOME SELF-CARE Condition: Good Instructions (If sedation given, give patient instructions): Shoulder Sprain (ED), Shoulder Immobilizer (ED) Additional Instructions: Report back to ER with worsening symptoms or new onset alarming symptoms such as numbness, tingling, loss of range of motion, fever, chills. He may use ice, heat, Motrin, Tylenol, medication prescribed at this visit, elevation, rest. Alternate motrin and tylenol every 3 hours. Do not exceed more than 3500 mg of acetaminophen or 3200 mg of ibuprofen in 24 hours. Follow-up with orthopedics if symptoms do not resolve. Prescriptions: Cyclobenzaprine HCl 10 mg PO TID PRN #20 tab PRN Reason: Spasms Is patient prescribed a controlled substance at d/c from ED?: No Referrals: Brandon Cuello DO [Primary Care Provider] - 1-2 days Enio Cole MD [Medical Doctor] - 08/23/21 (If symptoms do not resolve follow up with orthopedics) Time of Disposition: 17:35
== END 2021-08-15 17:50 | disposition home or self-care (01) ==
LOC: EC 15:20
DX: S46.912A Strain of unspecified muscle, fascia and tendon at shoulder and upper arm level, left arm, initial encounter (principal); F41.9 Anxiety disorder, unspecified; F32.A Depression, unspecified; F12.90 Cannabis use, unspecified, uncomplicated; F17.200 Nicotine dependence, unspecified, uncomplicated; Z79.899 Other long term (current) drug therapy; X58.XXXA Exposure to other specified factors, initial encounter; Y93.K1 Activity, walking an animal
CPT/HCPCS: 99283; 96372; 73030; 73060; J1885